=== PATIENT | male | born 1970 | race Hispanic/Latino ===

== ENCOUNTER 2017-03-03 08:50 | Day surgery (SDC) | payer OTHER ==
[2017-03-03] MEDS ORDERED: Lactated Ringer's 500 ML IV ONE (09:15)
[2017-03-03 09:16] VITALS: BMI 26.9
[2017-03-03 09:26] VITALS: O2SAT 100
[2017-03-03] MEDS ORDERED: Propofol 10 mg/ml Inj (20 ML) ONE (10:12)
[2017-03-03 10:39] VITALS: TEMP 96.8
[2017-03-03 10:50] VITALS: BP 118/70; PULSE 74; RESP 18
== END 2017-03-03 11:31 | disposition home or self-care (01) ==
LOC: H.ENDO 08:50
PROVIDERS: ATTEND Internal Medicine Gastroenterology
DX: R12 Heartburn (principal); I10 Essential (primary) hypertension; K21.9 Gastro-esophageal reflux disease without esophagitis; K31.9 Disease of stomach and duodenum, unspecified; R93.3 Abnormal findings on diagnostic imaging of other parts of digestive tract; R06.83 Snoring